=== PATIENT | male | born 1995 | race Caucasian/White ===

== ENCOUNTER 2019-07-17 18:25 | Emergency (ER) | payer OTHER ==
[~2019-07-17] VITALS: Ht 177.8 cm; Wt 63.5 kg
[~2019-07-17 18:25] MED LIST: AMOX500 PO; CEPH500 PO; SULTRIDS PO
[2019-07-17] MEDS ORDERED: Keflex500 MG PO (20:00)
[2019-07-17] MEDS ORDERED: Bactrim Ds Tab1 EACH PO (20:00)
== END 2019-07-17 20:15 | disposition home or self-care (01) ==
LOC: ER 18:25
DX: S01.81XA Laceration without foreign body of other part of head, initial encounter (principal); L02.416 Cutaneous abscess of left lower limb; F17.200 Nicotine dependence, unspecified, uncomplicated; W22.8XXA Striking against or struck by other objects, initial encounter
CPT/HCPCS: 12013; 99282-25

== ENCOUNTER 2022-09-28 22:48 | Emergency (ER) | payer OTHER ==
[~2022-09-28] VITALS: Ht 177.8 cm; Wt 78.5 kg
[~2022-09-28 22:48] MED LIST changes: +Bactrim Ds Tab1 EACH PO; +Keflex500 MG PO
[2022-09-29] MEDS ORDERED: IBUP600 PO (00:33)
[2022-09-29] MEDS ORDERED: Vibramycin100 MG PO (00:33)
== END 2022-09-29 01:14 | disposition home or self-care (01) ==
LOC: ER 22:48
DX: N45.1 Epididymitis (principal); F17.210 Nicotine dependence, cigarettes, uncomplicated
CPT/HCPCS: 76870; A9270; J0696

== ENCOUNTER 2023-06-04 22:29 | Emergency (ER) | payer OTHER ==
[~2023-06-04] VITALS: Ht 177.8 cm; Wt 74.8 kg
[~2023-06-04 22:29] MED LIST changes: +IBUP600 PO; +Vibramycin100 MG PO
[2023-06-04 22:59] VITALS: BP 139/99
[2023-06-04] MEDS ORDERED: CEPH500 PO (23:13)
== END 2023-06-04 23:53 | disposition left against medical advice (07) ==
LOC: ER 22:29
DX: S01.01XA Laceration without foreign body of scalp, initial encounter (principal); W22.8XXA Striking against or struck by other objects, initial encounter; Y92.89 Other specified places as the place of occurrence of the external cause; Y99.0 Civilian activity done for income or pay; F17.210 Nicotine dependence, cigarettes, uncomplicated; Z91.013 Allergy to seafood; Z79.1 Long term (current) use of non-steroidal anti-inflammatories (NSAID)
CPT/HCPCS: 99282; A9270

== ENCOUNTER 2024-06-09 02:45 | Emergency (ER) | payer OTHER ==
[~2024-06-09] VITALS: Ht 167.6 cm; Wt 69.8 kg
[2024-06-09] MEDS ORDERED: Ketorolac Tromethamine 30mg Vial IV ONE (04:25)
[2024-06-09] MEDS ORDERED: NS 1,000 ML IV SCH (04:25)
[2024-06-09] MEDS ORDERED: Ketorolac Tromethamine 30mg Vial IM ONE (04:30)
[2024-06-09] MEDS ORDERED: Ibuprofen600 MG PO (05:21)
[2024-06-09] MEDS ORDERED: ACET500 PO (05:21)
[2024-06-09 05:25] VITALS: BP 139/89
== END 2024-06-09 05:45 | disposition home or self-care (01) ==
LOC: ER 02:45
DX: S39.012A Strain of muscle, fascia and tendon of lower back, initial encounter (principal); S60.512A Abrasion of left hand, initial encounter; F19.10 Other psychoactive substance abuse, uncomplicated; F17.210 Nicotine dependence, cigarettes, uncomplicated; X58.XXXA Exposure to other specified factors, initial encounter; Z91.013 Allergy to seafood
CPT/HCPCS: 70450; 71045; 72125; 74018; 93005; 93010; 96372; 99284-25; J1885; L0160